=== PATIENT | male | born 1970 | race Caucasian/White ===

== ENCOUNTER 2022-09-18 17:14 | Emergency (ER) | payer MEDICARE, MEDICAID, SELFPAY ==
[2022-09-18 17:26] VITALS: BP 124/72; PULSE 60; RESP 16; TEMP 36.8; O2SAT 99
--- NOTE | 2022-09-18 17:39 | PC.NURSE ---
Pt changing into a gown at this time for further evaluation of thigh pain.
--- NOTE | 2022-09-18 17:54 | ED.GENADULT ---
HPI - General Adult General Chief complaint: Unspecified Stated complaint: Right Hip Pain Time Seen by Provider: 09/18/22 17:48 Source: patient Mode of arrival: ambulatory Limitations: no limitations History of Present Illness HPI narrative: 51-year-old male presented for complaint of right thigh pain. Patient has learning disabilities and is escorted by [facility] worker from skilled nursing. patient denies any injury, numbness, tingling or weakness. Denies redness or drainage to the site. Patient is limping. Endorses onset today. Has not had any pain medication prior to arrival. Related Data Home Medications Medication Instructions Recorded Confirmed acetaminophen 325 mg tablet (Mapap 325 mg PO Q6H 12/03/21 (acetaminophen)) alendronate 70 mg tablet 70 mg PO WEEKLY 12/03/21 aluminum-mag hydroxide-simethicone 5 ml PO ONCE 12/03/21 200 mg-200 mg-20 mg/5 mL oral susp aripiprazole 15 mg tablet 15 mg PO DAILY 12/03/21 aspirin 81 mg chewable tablet 81 mg PO DAILY 12/03/21 bisacodyl 5 mg tablet (Correctol) 5 mg PO QHS 12/03/21 bromocriptine 2.5 mg tablet 2.5 mg PO BID 12/03/21 calcium carbonate 500 mg calcium 500 mg PO DAILY 12/03/21 (1,250 mg) tablet (Oyster Shell Calcium) carbamazepine 200 mg tablet 200 mg PO Q12H 12/03/21 clonazepam 1 mg tablet 1 mg PO BID 12/03/21 clonazepam 2 mg tablet 2 mg PO DAILY 12/03/21 diphenhydramine HCl 25 mg tablet 25 mg PO Q6H 12/03/21 lisinopril 40 mg tablet 40 mg PO DAILY 12/03/21 niacin 500 mg tablet,extended 500 mg PO QHS 12/03/21 release 24 hr (Niaspan) risperidone 0.5 mg tablet 0.5 mg PO BID 12/03/21 risperidone 2 mg tablet (Risperdal) 2 mg PO DAILY 12/03/21 risperidone 3 mg tablet (Risperdal) 3 mg PO BID 12/03/21 tamsulosin 0.4 mg capsule 0.4 mg PO DAILY 12/03/21 Allergies Allergy/AdvReac Type Severity Reaction Status Date / Time lisinopril Allergy Unknown Verified 09/18/22 17:34 Review of Systems Review of Systems: CONSTITUTIONAL: Denies body aches, fever, chills EYES: Denies visual changes ENT: Denies rhinorrhea, congestion CARDIOVASCULAR: Denies chest pain, palpitations, or edema. RESPIRATORY: Denies cough or dyspnea. GASTROINTESTINAL: Denies abdominal pain, nausea, vomiting, or diarrhea. SKIN: Denies rash, itching, or wounds. MUSCULOSKELETAL: Reports right leg pain NEUROLOGIC: Denies headache, numbness, tingling, or weakness. All systems reviewed & are unremarkable except as noted in HPI and below PMFSH Comments At time of signature, I have reviewed and agree with nursing past medical, surgical, social and family history unless otherwise noted. Please see nursing chart for further information. There is no relevant family history pertinent to the presenting complaint Exam Narrative: GENERAL: Well-appearing, well-nourished, and in no acute distress. HEAD: Normocephalic, atraumatic. EYES: PERRLA, conjunctivae clear NECK: Supple. CHEST: Speaks in full sentences. No respiratory distress. HEART: Regular rate and rhythm. Normal and equal peripheral pulses. EXTREMITIES: Right lateral thigh without signs of trauma. No bruising, swelling, redness, or cellulitis. Nontender with palpation. RLE has normal strength and sensation, normal range of motion. No open wounds or obvious deformity; pulse palpable and equal bilaterally, skin warm, dry, pink. Capillary refill less than 3 seconds. SKIN: Warm, dry, no rash. NEURO: Alert and oriented x3. PSYCH: Normal mood and affect Course Course Emergency Course: Patient is aware of diagnosis, understands and agrees to treatment plan. Anticipatory guidance given. Patient agrees to follow-up as directed and is aware of reasons to seek care at the emergency department. Portions of this record may have been created with voice recognition software Level of Care: Express Care Visit Vital Signs Vital signs: Vital Signs Temperature 98.2 F 09/18/22 17:26 Pulse Rate 60 09/18/22 17:26 Resp
[2022-09-18] MEDS: ACETAMINOPHEN 325 MG TABLET 650 MG PO (18:22)
== END 2022-09-18 18:30 | disposition home or self-care (01) ==
PROVIDERS: Emergency Provider Nurse Practitioner Family; PCP Internal Medicine
DX: M79.651 Pain in right thigh (principal); F71 Moderate intellectual disabilities
CPT/HCPCS: 99202; A9270; G0463